=== PATIENT | female | born 1995 | race African-American/Black ===

== ENCOUNTER 2016-09-10 03:44 | Emergency (ER) ==
[2016-09-10 04:37] LABS: MANUAL DIFF NEEDED? NO
[2016-09-10 05:03] LABS: BASO% 0.3 % (0.0-0.8); EOS# 0.12 X1000 (0.0-0.7); EOS% 1.2 % (0.0-10.0); HEMATOCRIT 39.9 % (37.0-47.0); IMM GRAN# 0.03 X1000 (0.0-0.04); IMM GRAN% 0.3 % (0.0-0.5); LYMPH# 2.25 X1000 (1.2-3.4); LYMPH% 22.8 % (20.5-51.1); MCH 30.2 PG (27-31); MCHC 35.1 g/dL (33-37); MONO# 1.06 X1000 (0.11-0.59); MONO% 10.7 % (1.7-9.3); MPV 10.5 FL (7.4-10.4); NEUT% 64.7 % (42.2-75.2); PLT 301 X1000 (130-400); RBC 4.64 XMIL (4.2-5.4)
[2016-09-10 05:46] LABS: AGAP 9; BUN 13 mg/dL (8-22); CALCIUM 9.5 mg/dL (8.8-10.2); CHLORIDE 89 mmol/L (98-107); COSMO 281; POTASSIUM 3.8 mmol/L (3.5-5.1); SODIUM 122 mmol/L (136-145); TCO2 24 mmol/L (25-35)
[2016-09-10] MEDS ORDERED: HUMALOG (PARKWAY) SUBQ ONE (05:47)
[2016-09-10] MEDS ORDERED: NS 1,000 ML IV ONE (06:35)
[2016-09-10 07:11] LABS: BE 0.3 mmoll (-3.0-3.0); BLOOD TYPE ARTERIAL; DRAW SITE R RADIAL; METHB 1.3 % (0.0-1.5); O2(CT) 18.9 mL/dL (15.0-23.0); PCO2(98.6) 38 mmHg (35-45); PO2(98.6) 84 mmHg (60-100); SAMPLE BLOOD; THB 14.3 g/dL (11.5-17.4); pH(98.6) 7.42 (7.35-7.45)
[2016-09-10 07:14] LABS: ALLEN TEST YES; MODALITY ROOM AIR
--- NOTE | 2016-09-10 07:42 | Diag Imaging Result Document ---
PROCEDURE NAME: CHEST-2 VIEWS - 09/10/2016 CHEST X-RAY, 2 VIEWS: COMPARISON: 01/25/2013. FINDINGS: The lungs are normally expanded and clear. Heart size and mediastinal contours are normal. No pneumothorax or pleural effusion. IMPRESSION: Negative exam.
--- NOTE | 2016-09-10 09:23 | PROVIDER DOCUMENTATION ---
HPI-General Adult - General Chief Complaint: Cold Symptoms Stated Complaint: DIZZINESS,COUGHING,CHEST HURTS Time Seen by Provider: 09/10/16 04:21 Source: patient Allergies/Adverse Reactions: Patient Allergies Allergy/AdvReac Type Severity Reaction Status Date / Time No Known Allergies Allergy Verified 09/10/16 04:08 Home Medications: Insulin Lispro [Humalog] 15 unit SQ TID 03/21/13 - History of Present Illness -Gen Adult Nature of Presenting Problems: Reports to er with cc of cough and sinus congestion x 2 days. Pt has a hx of asthma is a smoker 1 ppd. Denies cp,syncope,n,v. Pt is a diabetic her BS is 720. Onset/Duration: reports: 2 days ago Timing: reports: still present Similar Symptoms Previously?: Yes Recently seen or treated by another doctor?: No Review of Systems - Adult - REVIEW OF SYSTEMS - ADULT Constitutional: denies: chills, fever, fatique Eyes: reports: no symptoms reported Ears, Nose, Mouth & Throat: reports: sinus problem. denies: ear pain, hoarseness, throat pain Cardiovascular: denies: chest pain, irregular heart rate, orthopnea, syncope Respiratory: reports: cough. denies: shortness of breath, wheezing Gastrointestinal: reports: no symptoms reported Genitourinary: reports: no symptoms reported Musculoskeletal: reports: no symptoms reported Integumentary: reports: no symptoms reported Neurological: reports: no symptoms reported Psychiatric: reports: no symptoms reported Endocrine: reports: no symptoms reported Hematologic/Lymphatic: reports: no symptoms reported Allergic/Immunologic: reports: no symptoms reported All Other Systems: Reviewed and Negative Past History - Adult - PAST MEDICAL HISTORY-ADULT Review of Records: reports: Nursing Assessment Review Major Childhood Illnesses: reports: denies history Cardiovascular: reports: denies history Respiratory: reports: denies history Gastrointestinal: reports: denies history Obstetrical/Gynecological: reports: denies history Genitourinary: reports: denies history Musculoskeletal: reports: denies history Neurological: reports: denies history Psychiatric: reports: anxiety Endocrine/Immune: reports: Diabetes Other Conditions: reports: denies history - PRIOR SURGERIES/PROCEDURES Surgical/Procedure History: reports: reviewed, not pertinent - IMMUNIZATION STATUS Childhood Immunizations: See Nurse Assessment Flu Vaccine: See Nurse Assessment - FAMILY HISTORY Family History: diabetes, HTN - SOCIAL HISTORY Smoking: cigarettes, greater than 1 pack/day Provider spent 3-5 mins advising pt. on dangers of tobacco.: Discussed manners to quit use, and f/u contacts for add'l counseling. Substance Use: none/never Physical Exam-General - PHYSICAL EXAM-ADULT Initial Vital Signs Reviewed: Yes - CONSTITUTIONAL General Appearance: appears well, alert, no apparent distress - EYES Eyes: PERRL/EOMI, pink conjunctivae, other (Unable to see thru left eye possible cataracts) - HEAD, EARS, NOSE, MOUTH & THROAT HENMT: normocephalic/atraumatic, moist mucous membranes, normal ENT inspection - NECK Neck: non-tender, full range of motion, supple, normal inspection - RESPIRATORY Respiratory: chest non-tender, lungs clear, normal breath sounds - CARDIOVASCULAR Cardiovascular: normal peripheral pulses, regular rate, rhythm, no edema - GASTROINTESTINAL (ABDOMEN) Abdominal Exam: normal bowel sounds, non tender, soft - LYMPHATIC Lymphatic: no adenopathy - MUSCULOSKELETAL Back Exam: normal inspection, no CVA tenderness, no vertebral tenderness Extremity: normal range of motion, non-tender, normal gait - SKIN Integumentary: normal color, normal turgor, warm/dry - NEUROLOGIC Neurologic: grossly normal, no motor/sensory deficits - PSYCHIATRIC Psych/Mental Status: normal mood/affect, normal thought content, normal thought process, oriented x 3 Progress - REASSESSMENT Reassessment #1 Time Reassessed: 09:21 (Pt Is in no distress BS after eating is down to 66) - XRAY 1 XRAY: Bilateral XRAY Study: Chest Impression: Normal XRAY Interpretation: nad Departure - Departure Time of Disposition Order: 09:20 DIAGNOSIS: Bronchitis, Hyperglycemia Disposition: HOME 01 Certified Medical Emergency: Emergent Condition: Stable Additional Instructions: ED Follow Up Instructions: You have been treated by a care provider in the Emergency Department. These instructions are being provided to you so you can have an understanding of how to care for yourself upon discharge. Upon discharge from the Emergency Department, you are responsible for making arrangements for follow-up care by a physician of your choice. Take all prescribed medications as directed. Return to the Emergency Department immediately for any new or worsening symptoms. You may call the Physician Referral phone number at [phone] to obtain a list of Physicians who are taking new patients. Prescriptions: Benzonatate [Tessalon Perle] 100 mg PO TID #30 capsule Azithromycin [Zithromax Z-Martín] 250 mg PO DIRECTED #1 pkg Referrals: Clark Cunningham MD [STAFF PHYSICIAN] - None,PCP [Primary Care Provider] - Instructions: Hyperglycemia, [id number], Acute Bronchitis, [id number], Azithromycin tablets, Benzonatate capsules
[2016-09-10 09:37] VITALS: BP 124/79
== END 2016-09-10 09:40 | disposition home or self-care (01) ==
LOC: P.ED 03:44
DX: J40 Bronchitis, not specified as acute or chronic (principal); E11.65 Type 2 diabetes mellitus with hyperglycemia; R05 Cough; R09.81 Nasal congestion; F17.210 Nicotine dependence, cigarettes, uncomplicated; Z71.6 Tobacco abuse counseling; Z79.4 Long term (current) use of insulin
CPT/HCPCS: 71020; 80048; 81025; 82805; 82948; 85025; 87804; 96360; 96361; 96372; J1815; J7030

== ENCOUNTER 2016-11-04 16:11 | Emergency (ER) ==
[2016-11-04] MEDS ORDERED: NS 1,000 ML IV ONE ×2 (18:02→20:19)
[2016-11-04] MEDS ORDERED: ZOFRAN IV ONE (18:02)
[2016-11-04 18:07] LABS: MANUAL DIFF NEEDED? NO
--- NOTE | 2016-11-04 18:10 | PROVIDER DOCUMENTATION ---
HPI-General Adult - General Chief Complaint: General Adult Stated Complaint: GENERAL ADULT Time Seen by Provider: 11/04/16 17:43 Source: patient Allergies/Adverse Reactions: Patient Allergies Allergy/AdvReac Type Severity Reaction Status Date / Time No Known Allergies Allergy Verified 11/04/16 16:40 Home Medications: Home Medication List Medication Instructions Recorded Confirmed Last Taken Type Insulin Glargine [Lantus] 15 unit SUBQ QHS #1 insuln.pen 04/06/16 11/04/1611/03 22:00 Rx Insulin Lispro [Humalog] 5 unit SQ TID #1 cartridge 04/06/16 11/04/16 11/04/16 09:00 Rx Valacyclovir HCl [Valacyclovir] 1,000 mg PO DAILY #3 tablet 11/04/16 Unknown Rx - History of Present Illness -Gen Adult Nature of Presenting Problems: Pt. is 21 yof that presents with c/o general fatigue, nausea, abd pain, and blisters on her upper lip. Pt. reports this has gradually gotten worse over two days and that this morning the blisters showed up. Pt. reports she is a Type I diabetic and that her sugar was high today. Pt. reports increased thirst and urination. Pt. denies any other symptoms at time of exam. Location of Pain/Injury: reports: abdomen. denies: head, face, mouth, neck, chest, upper extremity, hand(s), back, pelvis, genitalia, lower extremity, feet , upper body, lower body, generalized Pain Radiation: reports: no radiation Quality of Pain: reports: aching. denies: burning, cramping, dull, fullness, indigestion, pressure, sharp, stabbing, tearing, throbbing, tightness Severity: reports: mild. denies: moderate, severe Onset/Duration: reports: gradual, 2 days ago Timing: reports: still present. denies: improving, gone now, resolved prior to arrival, intermittent, constant, changing over time, getting worse Context/Activities at Onset: reports: none. denies: recent emotional stress, recent physical stress, recent trauma history, possible bad food, cold exposure , out of country travel Modifying Factors: improves with: nothing Associated Symptoms: reports: malaise, nausea, other (Sores on upper lip). denies: anxiety, arm pain, back/neck pain, chest pain, constipation, cough, diaphoresis, diarrhea, dizziness, EENT symptoms, fatigue, fever/chills, genitourinary problems, headaches, heartburn, joint pain, loss of appetite, muscle aches, sinus congestion/drainage, rash, seizure, shortness of breath, sensory/motor loss, pain with inspiration, swelling/mass in abdomen, syncope, vomiting, weakness, trouble walking Similar Symptoms Previously?: Yes Recently seen or treated by another doctor?: No Review of Systems - Adult - REVIEW OF SYSTEMS - ADULT Constitutional: reports: see HPI, fatique. denies: chills, fever, night sweats Eyes: reports: see HPI. denies: discharge, blurred vision, double vision, eye pain Ears, Nose, Mouth & Throat: reports: see HPI. denies: ear discharge, ear pain, hearing loss, sinus problem, nose pain, loose teeth, mouth/dental pain, throat pain, throat swelling Cardiovascular: reports: see HPI. denies: chest pain, edema, irregular heart rate, orthopnea, syncope Respiratory: reports: see HPI. denies: chronic cough, cough, dyspnea on exertion, pleurisy, shortness of breath, wheezing Gastrointestinal: reports: see HPI, abdominal pain, nausea. denies: hematemesis , difficulty swallowing, frequent heartburn, vomiting Genitourinary: reports: see HPI. denies: dysuria, frequency, hematuria, hesitency, urgency Musculoskeletal: reports: see HPI. denies: bone pain, joint pain, muscle aches , neck pain Integumentary: reports: see HPI, skin sores/ulcer (blisters on upper lip). denies: hives, itching, rash, skin thickening Neurological: reports: see HPI. denies: ataxia, headache/migraines, numbness, paresthesia, seizure, tremors Psychiatric: reports: see HPI. denies: anxiety, depression, emotional problems , insomnia, panic attacks, suicidal thoughts Endocrine: reports: see HPI, increased thirst, polyuria. denies: cold intolerance, heat intolerance, increased hunger Past History - Adult - PAST MEDICAL HISTORY-ADULT Review of Records: reports: Old Records Reviewed, Nursing Assessment Review, Medications Reviewed, Social history reviewed & non-contributory. Major Childhood Illnesses: reports: denies history Cardiovascular: reports: denies history Respiratory: reports: denies history Gastrointestinal: reports: denies history Obstetrical/Gynecological: reports: denies history Genitourinary: reports: denies history Musculoskeletal: reports: denies history Neurological: reports: denies history Psychiatric: reports: anxiety, bipolar, schizophrenia Endocrine/Immune: reports: Diabetes Other Conditions: reports: denies history - PRIOR SURGERIES/PROCEDURES Surgical/Procedure History: reports: reviewed, not pertinent - IMMUNIZATION STATUS Childhood Immunizations: See Nurse Assessment Flu Vaccine: See Nurse Assessment - FAMILY HISTORY Family History: diabetes, HTN - SOCIAL HISTORY Smoking: quit greater than 1 year Physical Exam-General - PHYSICAL EXAM-ADULT Initial Vital Signs Reviewed: Yes - CONSTITUTIONAL General Appearance: alert, mild distress, thin, lethargic. negative: obese, anxious, slow to respond, obtunded, combative - EYES Eyes: PERRL/EOMI, pink conjunctivae. negative: conjuctival exudate, scleral icterus, subconjunctival hemorrhage - HEAD, EARS, NOSE, MOUTH & THROAT HENMT: normocephalic/atraumatic, moist mucous membranes. negative: angioedema, frontal tenderness, maxillary tenderness - NECK Neck: non-tender, full range of motion, supple, normal inspection. negative: lymphadenopathy, trachial deviation, thyromegaly - RESPIRATORY Respiratory: lungs clear, normal breath sounds. negative: crackles, rales, rhonchi, stridor, wheezing - CARDIOVASCULAR Cardiovascular: normal peripheral pulses, regular rate, rhythm, no edema, no JVD , no murmur. negative: extra beats, friction rub, irregularly irregular - CHEST (BREASTS) Chest/Breast: deferred - GASTROINTESTINAL (ABDOMEN) Abdominal Exam: normal bowel sounds, non tender, soft. negative: distended, guarding, rigid, rebound, tenderness, hernia, mass - GENITOURINARY Female Genitalia/Pelvic Exam: deferred Rectal Exam: deferred Hemoccult Exam: deferred - LYMPHATIC Lymphatic: no adenopathy. negative: axilla node tender, cervical node tenderness - MUSCULOSKELETAL Back Exam: normal inspection, no CVA tenderness, no vertebral tenderness. negative: ecchymosis, swelling, vertebral tenderness Extremity: normal range of motion, non-tender, normal gait, normal inspection. negative: deformity, erythema, inflammation, swelling, tenderness Peripheral Pulses: radial (R): 2+, radial (L): 2+ - SKIN Integumentary: normal color, normal turgor, warm/dry. negative: cyanosis, diaphoresis, ecchymosis, erythema, jaundice, mottled, pallor, petechiae, purpura , rash, swelling, tenderness - NEUROLOGIC Neurologic: grossly normal, no motor/sensory deficits. negative: aphasia, facial droop, focal weakness, motor weakness, sensory deficit - PSYCHIATRIC Psych/Mental Status: normal mood/affect, normal thought content, normal thought process, oriented x 3. negative: anxious, paranoid, tearful Progress - PLAN OF CARE/RESULTS Progress/Plan/Lab Results: Discussed results and plan of care with patient. Patient agrees with plan and verbalizes understanding. Vital Signs Temp Pulse Resp BP Pulse Ox 11/04/16 21:58 100.3 F H 120 H 22 132/76 100 11/04/16 20:16 100.8 F H 11/04/16 19:49 100 H 20 129/92 99 11/04/16 18:16 99 F 118 H 20 128/92 94 L 11/04/16 16:17 97.9 F 87 18 110/75 100 No Known Allergies Allergy (Verified 11/04/16 16:40) Insulin Glargine [Lantus] 15 unit SUBQ QHS #1 insuln.pen 04/06/16 Insulin Lispro [Humalog] 5 unit SQ TID #1 cartridge 04/06/16 Laboratory 11/04/16 11/04/16 11/04/16 20:14 18:30 17:35 WBC 14.21 H RBC 4.58 Hgb 13.4 Hct 38.9 MCV 84.9 MCH 29.3 MCHC 34.4 RDW Std Deviation 12.7 Plt Count 284 MPV 10.9 H Immature Gran % (Auto) 0.5 Neut % (Auto) 67.6 Lymph % (Auto) 13.2 L [place] % (Auto) 17.9 H Eos % (Auto) 0.6 Baso % (Auto) 0.2 Immature Gran # (Auto) 0.07 H Neut # (Auto) 9.62 H Lymph # (Auto) 1.87 [place] # (Auto) 2.54 H Eos # (Auto) 0.08 Baso # (Auto) 0.03 Specimen Type ARTERIAL Sample Site R BRACHIAL pH 7.43 pCO2 33 L pO2 83 HCO3 23.5 Base Excess -1.7 Oxyhemoglobin 93.9 L ABG O2 Sat (Calculated) 18.4 ABG O2 Saturation 98.3 ABG Carboxyhemoglobin 2.70 H ABG Methemoglobin 1.8 H [place] Test NO A-a O2 Difference 25.0 Total Hemoglobin 13.9 Lactate 1.20 Blood Gas Modality ROOM AIR FiO2 % 21.0 Sodium Potassium Chloride Carbon Dioxide Anion Gap BUN Creatinine Estimated GFR/1.73 m2 BUN/Creatinine Ratio Glucose POC Glucose 368 H Calculated Osmolality Calcium Total Bilirubin AST ALT Alkaline Phosphatase Total Protein Albumin Globulin Albumin/Globulin Ratio Acetone Level 11/04/16 17:35 WBC RBC Hgb Hct MCV MCH MCHC RDW Std Deviation Plt Count MPV Immature Gran % (Auto) Neut % (Auto) Lymph % (Auto) [place] % (Auto) Eos % (Auto) Baso % (Auto) Immature Gran # (Auto) Neut # (Auto) Lymph # (Auto) [place] # (Auto) Eos # (Auto) Baso # (Auto) Specimen Type Sample Site pH pCO2 pO2 HCO3 Base Excess Oxyhemoglobin ABG O2 Sat (Calculated) ABG O2 Saturation ABG Carboxyhemoglobin ABG Methemoglobin Juanpablo Test A-a O2 Difference Total Hemoglobin Lactate Blood Gas Modality FiO2 % Sodium 129 L Potassium 4.4 Chloride 88 L Carbon Dioxide 21 L Anion Gap 20 BUN 12 Creatinine 0.7 Estimated GFR/1.73 m2 > 60 BUN/Creatinine Ratio 17 Glucose 522 H* POC Glucose Calculated Osmolality 282 Calcium 9.3 Total Bilirubin 0.37 AST 25 ALT 34 Alkaline Phosphatase 101 Total Protein 7.6 Albumin 3.6 Globulin 4.0 Albumin/Globulin Ratio 0.9 Acetone Level NEGATIVE Orders Category Date Time Status FSBS [Finger Stick Blood Sugar (ED)] DIRECTED Care 11/04/16 19:32 Active Saline Loc NOW Care 11/04/16 18:01 Active ABG [RESP] Routine Lab 11/04/16 18:30 Completed ACETONE SERUM [CHEM] Stat Lab 11/04/16 17:35 Completed CBC WITH ELECTRONIC DIFF [HEME] Stat Lab 11/04/16 17:35 Completed COMPREHENSIVE METABOLIC PANEL [CHEM] Stat Lab 11/04/16 17:35 Completed TEST-URINE [PREG] Stat Lab 11/04/16 18:04 Ordered URINALYSIS W/POSS RFLX CULT [URINALYSIS] Stat Lab 11/04/16 18:04 Ordered 0.9% Sodium Chloride Inj [Ns] 1,000 ml Med 11/04/16 18:02 Discontinued IV 999 mls/hr 0.9% Sodium Chloride Inj [Ns] 1,000 ml Med 11/04/16 20:19 Discontinued IV 999 mls/hr Acetaminophen [Tylenol] Med 11/04/16 22:04 Discontinued 1,000 mg PO NOW ONE Insulin Human Regular [Humulin R] Med 11/04/16 18:56 Discontinued 10 unit IV NOW ONE Insulin Human Regular [Humulin R] Med 11/04/16 20:19 Discontinued 10 unit IV NOW ONE Ondansetron [Zofran] Med 11/04/16 18:02 Discontinued 4 mg IV NOW ONE Valacyclovir [Valtrex] Med 11/04/16 18:39 Discontinued 500 mg PO NOW ONE Laboratory Tests 11/04/16 11/04/16 11/04/16 17:35 17:35 18:30 WBC 14.21 H RBC 4.58 Hgb 13.4 Hct 38.9 MCV 84.9 MCH 29.3 MCHC 34.4 RDW Std Deviation 12.7 Plt Count 284 MPV 10.9 H Immature Gran % (Auto) 0.5 Neut % (Auto) 67.6 Lymph % (Auto) 13.2 L [place] % (Auto) 17.9 H Eos % (Auto) 0.6 Baso % (Auto) 0.2 Immature Gran # (Auto) 0.07 H Neut # (Auto) 9.62 H Lymph # (Auto) 1.87 [place] # (Auto) 2.54 H Eos # (Auto) 0.08 Baso # (Auto) 0.03 Specimen Type ARTERIAL Sample Site R BRACHIAL pH 7.43 pCO2 33 L pO2 83 HCO3 23.5 Base Excess -1.7 Oxyhemoglobin 93.9 L ABG O2 Sat (Calculated) 18.4 ABG O2 Saturation 98.3 ABG Carboxyhemoglobin 2.70 H ABG Methemoglobin 1.8 H [place] Test NO A-a O2 Difference 25.0 Total Hemoglobin 13.9 Lactate 1.20 Blood Gas Modality ROOM AIR FiO2 % 21.0 Sodium 129 L Potassium 4.4 Chloride 88 L Carbon Dioxide 21 L Anion Gap 20 BUN 12 Creatinine 0.7 Estimated GFR/1.73 m2 > 60 BUN/Creatinine Ratio 17 Glucose 522 H* POC Glucose Calculated Osmolality 282 Calcium 9.3 Total Bilirubin 0.37 AST 25 ALT 34 Alkaline Phosphatase 101 Total Protein 7.6 Albumin 3.6 Globulin 4.0 Albumin/Globulin Ratio 0.9 Acetone Level NEGATIVE 11/04/16 20:14 WBC RBC Hgb Hct MCV MCH MCHC RDW Std Deviation Plt Count MPV Immature Gran % (Auto) Neut % (Auto) Lymph % (Auto) [place] % (Auto) Eos % (Auto) Baso % (Auto) Immature Gran # (Auto) Neut # (Auto) Lymph # (Auto) [place] # (Auto) Eos # (Auto) Baso # (Auto) Specimen Type Sample Site pH pCO2 pO2 HCO3 Base Excess Oxyhemoglobin ABG O2 Sat (Calculated) ABG O2 Saturation ABG Carboxyhemoglobin ABG Methemoglobin [place] Test A-a O2 Difference Total Hemoglobin Lactate Blood Gas Modality FiO2 % Sodium Potassium Chloride Carbon Dioxide Anion Gap BUN Creatinine Estimated GFR/1.73 m2 BUN/Creatinine Ratio Glucose POC Glucose 368 H Calculated Osmolality Calcium Total Bilirubin AST ALT Alkaline Phosphatase Total Protein Albumin Globulin Albumin/Globulin Ratio Acetone Level Departure - Departure Time of Disposition Order: 22:42 DIAGNOSIS: Hyperglycemia, Herpes simplex Disposition: HOME 01 Certified Medical Emergency: Emergent Condition: Stable Additional Instructions: Follow up with primary care physician Take medications as directed Return to ED for any concerns or worsening of symptoms ED Follow Up Instructions: You have been treated by a care provider in the Emergency Department. These instructions are being provided to you so you can have an understanding of how to care for yourself upon discharge. Upon discharge from the Emergency Department, you are responsible for making arrangements for follow-up care by a physician of your choice. Take all prescribed medications as directed. Return to the Emergency Department immediately for any new or worsening symptoms. You may call the Physician Referral phone number at [phone] to obtain a list of Physicians who are taking new patients. Prescriptions: Valacyclovir HCl [Valacyclovir] 1,000 mg PO DAILY #3 tablet Attestation - Physician/ TOMMY Attestation Patient care was provided by Advanced Practice Provider:: Yes Advanced Practice Provider:: Guido Geronimo Advanced Practice Provider documentation review:: The Mid-level provider documentation, treatment plan and medical decision making was reviewed by the physician who agrees with all treatment and medical decision making by the MLP.
[2016-11-04 18:16] LABS: BASO% 0.2 % (0.0-0.8); EOS# 0.08 X1000 (0.0-0.7); EOS% 0.6 % (0.0-10.0); HEMATOCRIT 38.9 % (37.0-47.0); HEMOGLOBIN 13.4 g/dL (12.0-16.0); IMM GRAN# 0.07 X1000 (0.0-0.04); IMM GRAN% 0.5 % (0.0-0.5); LYMPH# 1.87 X1000 (1.2-3.4); LYMPH% 13.2 % (20.5-51.1); MCH 29.3 PG (27-31); MCHC 34.4 g/dL (33-37); MCV 84.9 FL (81-99); MONO# 2.54 X1000 (0.11-0.59); MONO% 17.9 % (1.7-9.3); MPV 10.9 FL (7.4-10.4); NEUT% 67.6 % (42.2-75.2); PLT 284 X1000 (130-400); RBC 4.58 XMIL (4.2-5.4)
[2016-11-04 18:31] LABS: ACETONE SERUM NEGATIVE (NEGATIVE)
[2016-11-04 18:37] LABS: ALLEN TEST NO; BE -1.7 mmoll (-3.0-3.0); BLOOD TYPE ARTERIAL; DRAW SITE R BRACHIAL; METHB 1.8 % (0.0-1.5); O2(CT) 18.4 mL/dL (15.0-23.0); PCO2(98.6) 33 mmHg (35-45); PO2(98.6) 83 mmHg (60-100); SAMPLE BLOOD; SAO2 98.3 % (95.0-100.0); THB 13.9 g/dL (11.5-17.4); pH(98.6) 7.43 (7.35-7.45)
[2016-11-04 18:38] LABS: MODALITY ROOM AIR
[2016-11-04] MEDS ORDERED: VALTREX PO ONE (18:39)
[2016-11-04 18:53] LABS: AGAP 20; ALBUMIN 3.6 g/dL (3.5-5.0); ALKALINE PHOSPHATASE 101 U/L (32-104); BUN 12 mg/dL (8-22); CALCIUM 9.3 mg/dL (8.8-10.2); CHLORIDE 88 mmol/L (98-107); COSMO 282; GOT 25 U/L (10-30); GPT 34 U/L (10-36); POTASSIUM 4.4 mmol/L (3.5-5.1); SODIUM 129 mmol/L (136-145); TCO2 21 mmol/L (25-35); TOTAL BILIRUBIN 0.37 mg/dL (0.20-1.00); TOTAL PROTEIN 7.6 g/dL (6.3-8.3)
[2016-11-04] MEDS ORDERED: HUMULIN R IV ONE ×2 (18:56→20:19)
[2016-11-04] MEDS ORDERED: TYLENOL PO ONE (22:04)
[2016-11-04 22:54] VITALS: BP 100/56
== END 2016-11-04 23:06 | disposition home or self-care (01) ==
LOC: ED 16:11
DX: E10.65 Type 1 diabetes mellitus with hyperglycemia (principal); B00.1 Herpesviral vesicular dermatitis; R53.83 Other fatigue; R63.1 Polydipsia; R35.8 Other polyuria; R10.9 Unspecified abdominal pain; R53.81 Other malaise; R11.0 Nausea; F41.9 Anxiety disorder, unspecified; F31.9 Bipolar disorder, unspecified; F20.9 Schizophrenia, unspecified; Z83.3 Family history of diabetes mellitus; Z82.49 Family history of ischemic heart disease and other diseases of the circulatory system; Z87.891 Personal history of nicotine dependence; Z79.4 Long term (current) use of insulin
CPT/HCPCS: 80053; 82009; 82805; 82948; 85025; J2405; J7030